=== PATIENT | female | born 1930 | race Native Hawaiian/Other Pacific Islander ===

== ENCOUNTER 2019-02-16 09:37 | Inpatient (IN) | payer MEDICARE ==
[2019-02-16] VITALS (32 sets, daily range): BP systolic 100–169; BP diastolic 44–82
[~2019-02-16] VITALS: Ht 147.3 cm; Wt 43.1 kg
[2019-02-16 09:52] LABS: BASOPHILS % (AUTO) 0.3 % (0.0-5.0); EOSINOPHILS % (AUTO) 0.3 % (0.0-8.0); HEMATOCRIT 36.8 % (36-48); LYMPHOCYTES % (AUTO) 34.5 % (21.0-51.0); MEAN CORPUSCULAR HEMOGLOBIN 30.4 pg (27.0-33.0); MEAN CORPUSCULAR HGB CONC 33.2 g/dL (32.0-36.0); MEAN CORPUSCULAR VOLUME 91.6 fL (79-99); MONOCYTES % (AUTO) 6.5 % (3.0-13.0); NEUTROPHILS % (AUTO) 58.4 % (40.0-77.0); NUCLEATED RED BLOOD CELLS 0.1 % (0.0-0.19); PLATELET COUNT (AUTO) 213 K/uL (130-400); RED BLOOD CELL COUNT(AUTO) 4.02 MIL/uL (4.00-5.50); RED CELL DISTRIBUTION WIDTH 15.3 % (11.0-15.5); WHITE BLOOD COUNT (AUTO) 9.3 K/uL (4.8-10.8)
[2019-02-16 09:57] LABS: POTASSIUM 3.7 mmol/L (3.5-5.1)
[2019-02-16 09:59] LABS: CREATININE 1.3 mg/dL (0.5-1.5)
[2019-02-16 10:00] LABS: APPEARANCE,URINE TURBID (CLEAR); BILIRUBIN,URINE NEGATIVE (NEGATIVE); COLOR,URINE YELLOW (YELLOW); GLUCOSE, URINE (UA) NEGATIVE (NEGATIVE); KETONES,URINE NEGATIVE (NEGATIVE); LEUKOCYTE ESTERASE ,URINE LARGE (NEGATIVE); NITRATE,URINE POSITIVE (NEGATIVE); OCCULT BLOOD,URINE SMALL (NEGATIVE); PH,URINE 8.5 (5.0-8.0); PROTEIN,URINE 100 mg/dL (NEGATIVE); UROBILINOGEN,URINE 0.2 mg/dL (0.2-1.0)
[2019-02-16] MEDS ORDERED: NOREPINEPHRINE BITARTRATE 1 MG/1 ML ML IV ONE (10:02)
[2019-02-16 10:04] LABS: ALBUMIN 2.5 g/dL (3.5-5.0); BILIRUBIN,TOTAL 0.4 mg/dL (0.2-1.0); TOTAL PROTEIN, SERUM 6.3 g/dL (6.0-8.3)
[2019-02-16] MEDS ORDERED: SODIUM CHLORIDE 0.9% 250 ML IV ONE (10:04)
[2019-02-16 10:05] LABS: ABG BASE EXCESS 1.6 mmol/L (-2.0-3.0); ABG HCO3 25.6 mmol/L (21.0-28.0); ABG OXYGEN SATURATION 99.5 % (95.0-99.0); ABG PCO2 38 mmHg (32-45)
[2019-02-16 10:17] LABS: BACTERIA,URINE Many /HPF (None Seen); SQUAMOUS EPITHELIAL CELL,UR Few /HPF (0-2); WBC,URINE TNTC /HPF (0-1)
[2019-02-16 10:27] LABS: B-TYPE NATRIURETIC PEPTIDE 68 pg/mL (0-100)
[2019-02-16] MEDS ORDERED: ZOSYN 3.375GM+NS 50ML 50 ML IV ONE (10:50)
[2019-02-16] MEDS: SODIUM CHLORIDE 0.9% 1000ML 1,000 ML IV SCH ×2 (10:56→17:07)
[2019-02-16] MEDS ORDERED: VANCOMYCIN 1GM+NS 250ML 250 ML IV SCH (11:00)
[2019-02-16] MEDS ORDERED: ONDANSETRON HCL 4 MG/2 ML VIAL IV PRN (11:00)
[2019-02-16] MEDS ORDERED: VANCOMYCIN PROTOCOL PER PHARMACY IV PRN (11:00)
[2019-02-16] MEDS ORDERED: PROPOFOL 1000 MG/100 ML 100 ML IV ONE (11:07)
[2019-02-16] MEDS ORDERED: VANCOMYCIN PROTOCOL PER PHARMACY IV SCH (11:15)
[2019-02-16 11:19] LABS: INR 1.01 (0.85-1.15); PARTIAL THROMBOPLASTIN TIME 26.6 SEC (26.3-35.5); PROTHROMBIN TIME 10.6 SEC (9.6-11.6)
[2019-02-16] MEDS: INSULIN LISPRO 100 UNIT/ML 3ML SQ SCH ×2 (12:00→17:07)
[2019-02-16] MEDS: IPRATROPIUM/ALBUTEROL SULFATE 3 ML SOLUTION IH SCH ×3 (12:30→23:19)
--- NOTE | 2019-02-16 12:32 | NUR ---
pt unable to give history, pt on vent. no family @ this time Addendum: 02/16/19 at 1232 by MEHDI OLSEN RT Amended: Links added.
[2019-02-16] MEDS ORDERED: LACTATED RINGERS 1000ML 1,000 ML IV ONE (12:41)
[2019-02-16] MEDS ORDERED: NOREPINEPHRINE 4MG/NS 250ML 250 ML IV SCH (12:45)
[2019-02-16] MEDS ORDERED: PROPOFOL 1000 MG/100 ML IV PRN (13:00)
[2019-02-16 13:01] LABS: ABG BASE EXCESS 4.9 mmol/L (-2.0-3.0); ABG HCO3 24.2 mmol/L (21.0-28.0); ABG OXYGEN SATURATION 99.8 % (95.0-99.0); ABG PCO2 23 mmHg (32-45)
[2019-02-16] MEDS: LACTATED RINGERS 1000ML 1,000 ML IV SCH (14:42)
[2019-02-16] MEDS: MEROPENEM 500 MG VIAL IV SCH ×2 (14:47→18:41)
[2019-02-16] MEDS ORDERED: COMPOUND IV REFRIGERATED 1 EACH IVSOLN MISC PRN (15:00)
[2019-02-16] MEDS ORDERED: LORAZEPAM 2 MG/ML 1 ML VIAL IVP PRN (15:00)
[2019-02-16 15:17] LABS: ABG BASE EXCESS 4.1 mmol/L (-2.0-3.0); ABG HCO3 25.6 mmol/L (21.0-28.0); ABG OXYGEN SATURATION 99.6 % (95.0-99.0); ABG PCO2 30 mmHg (32-45)
[2019-02-16] MEDS: POTASSIUM CHLORIDE 20MEQ/100ML 100 ML IV PRN ×3 (15:18→23:15)
[2019-02-16] MEDS ORDERED: ACET-3194 PO (15:24)
[2019-02-16] MEDS ORDERED: PRAV10TA39 PO (15:24)
[2019-02-16] MEDS ORDERED: SITA100T12 PO (15:24)
[2019-02-16] MEDS ORDERED: CARV3.12 PO (15:24)
[2019-02-16] MEDS ORDERED: CEFD300C3 PO (15:24)
[2019-02-16] MEDS ORDERED: AMLO5TAB9 PO (15:24)
[2019-02-16] MEDS: VANCOMYCIN 750MG + NS 250 ML IV SCH ×2 (16:25)
[2019-02-16 18:29] LABS: CREATINE KINASE, TOTAL 203 U/L (21-232); MYOGLOBIN 192 ng/mL (10-92); TROPONIN I < 0.04 ng/mL (0.00-0.06)
--- NOTE | 2019-02-16 19:00 | NUR ---
ASSESSMENT ASSUMED CARE. INTUBATED & SEDATED. NON-RESPONSIVE. WEAK COUGH REFLEX. HYPOTHERMIA PROTOCOL IN PROGRESS. CURRENTLY CORE TEMP 32.8 CELSIUS. DAUGHTER AND CAREGIVER AT BEDSIDE. UPDATED REGARDING PATIENT STATUS AND PLAN OF CARE. FULL ASSESSMENT DOCUMENTED.
[2019-02-16] MEDS ORDERED: FAMOTIDINE/PF 20 MG/2 ML VIAL IV SCH (21:00)
[2019-02-16] MEDS: FAMOTIDINE/PF 20 MG/2 ML VIAL IV SCH (21:44)
[2019-02-16 22:39] LABS: CREATINE KINASE, TOTAL 212 U/L (21-232); MYOGLOBIN 134 ng/mL (10-92); POTASSIUM 3.4 mmol/L (3.5-5.1); TROPONIN I < 0.04 ng/mL (0.00-0.06)
[2019-02-17] VITALS (58 sets, daily range): BP systolic 88–162; BP diastolic 35–68
[2019-02-17] MEDS: PROPOFOL 1000 MG/100 ML 100 ML IV PRN ×2 (02:34→13:18)
[2019-02-17] MEDS: LACTATED RINGERS 1000ML 1,000 ML IV SCH ×4 (02:35→19:11)
[2019-02-17] MEDS: INSULIN LISPRO 100 UNIT/ML 3ML SQ SCH ×7 (04:00→23:54)
[2019-02-17] MEDS: POTASSIUM CHLORIDE 20MEQ/100ML 100 ML IV PRN ×2 (04:04→05:32)
[2019-02-17 04:05] LABS: ABG BASE EXCESS 4.1 mmol/L (-2.0-3.0); ABG HCO3 23.7 mmol/L (21.0-28.0); ABG OXYGEN SATURATION 99.6 % (95.0-99.0); ABG PCO2 24 mmHg (32-45)
[2019-02-17] MEDS: MEROPENEM 500 MG VIAL IV SCH ×3 (04:10→18:05)
[2019-02-17] MEDS: IPRATROPIUM/ALBUTEROL SULFATE 3 ML SOLUTION IH SCH ×4 (06:10→23:14)
[2019-02-17] MEDS: ENOXAPARIN SODIUM 40 MG/0.4 ML SYRINGE SQ SCH (09:02)
[2019-02-17] MEDS: FAMOTIDINE/PF 20 MG/2 ML VIAL IV SCH ×2 (09:03→20:50)
[2019-02-17] MEDS: ASPIRIN 325 MG TABLET PO SCH (09:04)
--- NOTE | 2019-02-17 09:50 | NUR ---
REWARMING INITIATED PER PROTOCOL.
--- NOTE | 2019-02-17 11:52 | NUR ---
MARGARET PLAN VISITED WITH PATIENT. PATIENT INTUBATED NO FAMILY AT BEDSIDE S/P CARDIAC ARREST. BLAS WILL CONTINUE TO FOLLOW. Addendum: 02/17/19 at 1153 by JADEN MARTINES RN CM Amended: Links added.
--- NOTE | 2019-02-17 11:53 | NUR ---
DR. PURCELL IN TO SEE PT. PLAN OF CARE DISCUSSED. FAMILY AT BEDSIDE. QUESTIONS ANSWERED. NEW ORDERS RECEIVED AND NOTED.
[2019-02-17] MEDS: NOREPINEPHRINE 4MG/NS 250ML 250 ML IV SCH (13:25)
[2019-02-18] VITALS (21 sets, daily range): BP systolic 72–150; BP diastolic 34–54
[2019-02-18] MEDS ORDERED: SODIUM BICARB 50MEQ 50ML VIAL ONE (00:24)
[2019-02-18] MEDS: LACTATED RINGERS 1000ML 1,000 ML IV SCH ×3 (02:03→20:56)
[2019-02-18] MEDS: MEROPENEM 500 MG VIAL IV SCH ×3 (02:47→18:21)
[2019-02-18] MEDS: PROPOFOL 1000 MG/100 ML 100 ML IV PRN ×2 (02:48→13:01)
[2019-02-18] MEDS: INSULIN LISPRO 100 UNIT/ML 3ML SQ SCH ×5 (04:00→20:00)
[2019-02-18 04:39] LABS: ABG HCO3 22.2 mmol/L (21.0-28.0); ABG OXYGEN SATURATION 98.6 % (95.0-99.0); ABG PCO2 30 mmHg (32-45)
[2019-02-18 04:40] LABS: HEMATOCRIT 34.3 % (36-48); MEAN CORPUSCULAR HEMOGLOBIN 30.2 pg (27.0-33.0); MEAN CORPUSCULAR HGB CONC 33.1 g/dL (32.0-36.0); MEAN CORPUSCULAR VOLUME 91.3 fL (79-99); PLATELET COUNT (AUTO) 161 K/uL (130-400); RED BLOOD CELL COUNT(AUTO) 3.76 MIL/uL (4.00-5.50); RED CELL DISTRIBUTION WIDTH 15.9 % (11.0-15.5); WHITE BLOOD COUNT (AUTO) 14.2 K/uL (4.8-10.8)
[2019-02-18 04:57] LABS: CREATININE 0.7 mg/dL (0.5-1.5); MAGNESIUM 1.5 mg/dL (1.80-2.40); PHOSPHORUS 3.8 mg/dL (2.5-4.9); POTASSIUM 4.1 mmol/L (3.5-5.1)
[2019-02-18] MEDS: IPRATROPIUM/ALBUTEROL SULFATE 3 ML SOLUTION IH SCH ×4 (07:13→23:22)
[2019-02-18] MEDS: FAMOTIDINE/PF 20 MG/2 ML VIAL IV SCH ×2 (09:31→20:56)
[2019-02-18] MEDS: ASPIRIN 325 MG TABLET PO SCH (09:31)
[2019-02-18] MEDS: ENOXAPARIN SODIUM 40 MG/0.4 ML SYRINGE SQ SCH (09:32)
--- NOTE | 2019-02-18 09:55 | NUR ---
CHART CHECK COMPLETED. Pt IS AN 88 YEAR OLD FEMALE ADMITTED SECONDARY TO AN OUT OF HOSPITAL CARDIAC ARREST, SEPTIC SHOCK, INTUBATED ON VENT AT THIS TIME. Pt HAS A PAST MEDICAL HISTORY SIGNIFICANT FOR DMII,HYPERTENSION, DEMENTIA, HYPERLIPIDEMIA. SKILLED SPEECH AND SWALLOW EVALUATION IS RECOMMENDED 24 HOURS POST EXTUBATION. STRIPPER SHOVEL OPERATOR WILL FOLLOW Pt. Addendum: 02/18/19 at 1001 by HORTENSIA PAREKH, [facility] Amended: Links added.
[2019-02-18] MEDS ORDERED: SODIUM CHLORIDE 0.9% IJ SCH (10:00)
[2019-02-18] MEDS ORDERED: FOSPHENYTOIN SODIUM IJ SCH (10:00)
[2019-02-18] MEDS: LEVETIRACETAM 1,000 MG in SODIUM CHLORIDE 0.9% 100 ML IV SCH ×2 (10:09→17:35)
[2019-02-18] MEDS ORDERED: COMPOUND IV MISC 1 EACH IVSOLN MISC PRN (12:00)
[2019-02-18] MEDS ORDERED: MAGNESIUM 4GM PREMIX 100ML 100 ML IV PRN (12:15)
[2019-02-18] MEDS: VANCOMYCIN 750MG + NS 250 ML IV SCH ×2 (14:57)
--- NOTE | 2019-02-18 15:14 | NUR ---
RD NOTIFICATION DX: CARDIAC ARREST, SEPTIC SHOCK. HX: DM, HTN, DEMENTIA, UTI. DIET: NO ORDER AT THIS TIME. NG TUBE IN PLACE. LBM: 02/18. PT CURRENTLY INTUBATED, SEDATED, ON MECHANICAL VENTILATION. RD CONSULT DUE TO TUBE FEEDING RECOMMENDATIONS. PT CURRENTLY ON 7.2 MLS/HR PROPOFOL. RD RECOMMENDS START GLUCERNA 1.5 AT 15MLS/HR VIA NG TUBE, INCREASE RATE BY 5MLS EVERY 5 HOURS IF TOLERATED WELL. GOAL RATE IS 30MLS/HR. FORMULA PROVIDES 1081KCAL/D, 59 GM PROTEIN/D, 546MLS/D. FLUSH WITH 120MLS Q6. TOTAL WATER EQUALS 1226MLS/D. RN NOTIFIED. RECS LEFT IN PT CHART. RD WILL CONTINUE TO MONITOR AND FOLLOW UP. PLEASE NOTIFY RD IF ANY CONCERNS ARISE. THANK YOU. Addendum: 02/18/19 at [address] Amended: Links added.
[2019-02-18] MEDS ORDERED: MAGNESIUM 2GM PREMIX 50ML 50 ML IV PRN (15:15)
[2019-02-18] MEDS: FOSPHENYTOIN SODIUM 100 MG in SODIUM CHLORIDE 0.9% 50 ML IV SCH (17:34)
[2019-02-19] VITALS (34 sets, daily range): BP systolic 77–145; BP diastolic 30–69
[2019-02-19] MEDS: LEVETIRACETAM 1,000 MG in SODIUM CHLORIDE 0.9% 100 ML IV SCH ×3 (02:03→19:28)
[2019-02-19] MEDS: FOSPHENYTOIN SODIUM 100 MG in SODIUM CHLORIDE 0.9% 50 ML IV SCH ×3 (02:04→19:28)
[2019-02-19] MEDS: MEROPENEM 500 MG VIAL IV SCH ×2 (02:24→10:54)
[2019-02-19 03:59] LABS: HEMATOCRIT 30.9 % (36-48); MEAN CORPUSCULAR HGB CONC 34.7 g/dL (32.0-36.0); MEAN CORPUSCULAR VOLUME 89.4 fL (79-99); NUCLEATED RED BLOOD CELLS 0.1 % (0.0-0.19); PLATELET COUNT (AUTO) 154 K/uL (130-400); RED BLOOD CELL COUNT(AUTO) 3.46 MIL/uL (4.00-5.50); RED CELL DISTRIBUTION WIDTH 15.6 % (11.0-15.5); WHITE BLOOD COUNT (AUTO) 10.5 K/uL (4.8-10.8)
[2019-02-19] MEDS: PROPOFOL 1000 MG/100 ML 100 ML IV PRN (04:01)
[2019-02-19] MEDS: NOREPINEPHRINE 4MG/NS 250ML 250 ML IV SCH (04:03)
[2019-02-19 04:15] LABS: CREATININE 0.6 mg/dL (0.5-1.5); MAGNESIUM 2.3 mg/dL (1.80-2.40)
[2019-02-19 04:25] LABS: POTASSIUM 2.9 mmol/L (3.5-5.1)
[2019-02-19] MEDS: POTASSIUM CHLORIDE 20MEQ/100ML 100 ML IV PRN ×2 (04:40→09:51)
[2019-02-19] MEDS: LIDOCAINE HCL-MPF 1% 2ML VIAL IV PRN (04:40)
[2019-02-19] MEDS: INSULIN LISPRO 100 UNIT/ML 3ML SQ SCH ×6 (05:00→20:00)
[2019-02-19] MEDS: IPRATROPIUM/ALBUTEROL SULFATE 3 ML SOLUTION IH SCH ×4 (06:08→23:33)
[2019-02-19] MEDS ORDERED: SODIUM CHLORIDE 0.9% 250 ML IV ONE (06:31)
[2019-02-19] MEDS: ASPIRIN 325 MG TABLET PO SCH (09:27)
[2019-02-19] MEDS: ENOXAPARIN SODIUM 40 MG/0.4 ML SYRINGE SQ SCH (09:27)
[2019-02-19] MEDS: FAMOTIDINE/PF 20 MG/2 ML VIAL IV SCH ×2 (09:27→20:30)
[2019-02-19] MEDS: LACTATED RINGERS 1000ML 1,000 ML IV SCH ×3 (09:36→19:27)
--- NOTE | 2019-02-19 09:50 | NUR ---
ROUNDS DR. SINGER IN TO SEE PATIENT. SPOKE WITH DAUGHTERS AT BEDSIDE. NEW ORDERS RECEIVED TO BE CARRIED OUT.
--- NOTE | 2019-02-19 10:00 | NUR ---
PROPOFOL TURNED OFF AT THIS TIME TO ASSESS NEURO STATUS.
[2019-02-19] MEDS ORDERED: PHARMACY COMMUNICATION MISC SCH ×2 (10:30)
--- NOTE | 2019-02-19 12:30 | NUR ---
MD ROUNDS DR. PURCELL IN TO SEE PATIENT. UPDATED ON NEW ORDERS FROM DR. SINGER.
[2019-02-19] MEDS: VALPROIC ACID (AS SODIUM SALT) 500 MG in SODIUM CHLORIDE 0.9% 50 ML IV SCH ×2 (13:08→23:23)
--- NOTE | 2019-02-19 15:30 | NUR ---
TAKEN TO CT FOR CT HEAD/BRAIN
--- NOTE | 2019-02-19 15:33 | NUR ---
RD NOTIFICATION/ FOLLOW UP DIET: GLUCERNA 1.5 VIA NG TUBE. GOAL RATE IS 30MLS/HR. PT TOLERATING TF WELL. RESIDUALS ARE NOT SIGNIFICANT PER NURSE. LBM: 02/18. SKIN INTACT, NO EDEMA NOTED. PROPOFOL ON STANDBY PER NURSE. RN NOTIFIED TO PUT IN NEW ORDER IF ANY CHANGES OCCUR. RD RECOMMENDS CONTINUE TF RECOMMENDATIONS. RD WILL CONTINUE TO MONITOR AND FOLLOW UP NEEDED. Addendum: 02/19/19 at [address] Amended: Links added.
--- NOTE | 2019-02-19 16:00 | NUR ---
BACK FROM CT SCAN HEAD/BRAIN.
[2019-02-19] MEDS: ZOSYN 3.375GM+NS 50ML 50 ML IV SCH ×2 (16:52→23:11)
--- NOTE | 2019-02-19 18:45 | NUR ---
CT SCAN HEAD/BRAIN RESULTS SENT TO DR. SINGER. NO NEW ORDERS AT THIS TIME.
[2019-02-20] VITALS (48 sets, daily range): BP systolic 106–157; BP diastolic 44–70
[2019-02-20] MEDS: LEVETIRACETAM 1,000 MG in SODIUM CHLORIDE 0.9% 100 ML IV SCH ×3 (01:32→18:13)
[2019-02-20] MEDS: PROPOFOL 1000 MG/100 ML 100 ML IV PRN (01:32)
[2019-02-20] MEDS: FOSPHENYTOIN SODIUM 100 MG in SODIUM CHLORIDE 0.9% 50 ML IV SCH ×3 (01:32→18:14)
[2019-02-20] MEDS: LACTATED RINGERS 1000ML 1,000 ML IV SCH ×3 (03:47→20:45)
[2019-02-20] MEDS: INSULIN LISPRO 100 UNIT/ML 3ML SQ SCH ×6 (04:00→20:00)
[2019-02-20 04:10] LABS: MAGNESIUM 2.1 mg/dL (1.80-2.40); POTASSIUM 3.5 mmol/L (3.5-5.1)
--- NOTE | 2019-02-20 05:25 | NUR ---
REPORT GIVEN TO HARMEET HOLMAN
[2019-02-20] MEDS: NOREPINEPHRINE 4MG/NS 250ML 250 ML IV SCH (05:32)
[2019-02-20] MEDS: ZOSYN 3.375GM+NS 50ML 50 ML IV SCH (05:46)
[2019-02-20] MEDS: IPRATROPIUM/ALBUTEROL SULFATE 3 ML SOLUTION IH SCH ×4 (06:40→23:27)
--- NOTE | 2019-02-20 07:45 | NUR ---
PT IS HAVING EEG AT PRESENT AND PT HAS BEEN ASSESSED AND REMAINS ON VENTILATOR PRESCRIBED.
[2019-02-20 11:36] LABS: PHENYTOIN (DILANTIN) 13.7 mcg/mL (10.0-20.0)
[2019-02-20] MEDS: FAMOTIDINE/PF 20 MG/2 ML VIAL IV SCH ×2 (11:38→21:08)
[2019-02-20] MEDS: ENOXAPARIN SODIUM 40 MG/0.4 ML SYRINGE SQ SCH (11:39)
[2019-02-20] MEDS: VALPROIC ACID (AS SODIUM SALT) 500 MG in SODIUM CHLORIDE 0.9% 50 ML IV SCH ×2 (11:41→23:17)
[2019-02-20] MEDS: ASPIRIN 325 MG TABLET PO SCH (11:41)
[2019-02-20] MEDS ORDERED: LACTATED RINGERS 1000ML IV SCH (12:45)
[2019-02-20] MEDS ORDERED: PHARMACY COMMUNICATION MISC SCH (14:15)
--- NOTE | 2019-02-20 14:51 | NUR ---
RD NOTIFICATION/ FOLLOW UP RD CONSULT DUE TO PT HAVING LOOSE STOOLS. PT PREVIOUSLY ON GLUCERNA 1.5 AND REACHED RATE OF 20MLS/HR. RD RECOMMEND D/C GLUCERNA 1.5. CHANGE TF FORMULA TO VITAL AF 1.2 VIA NG TUBE. START RATE AT 15MLS FOR FIRST 5 HOURS, INCREASE BY 5MLS EVER 5 HOURS UNTIL GOAL RATE ACHIEVED. GOAL RATE IS 35MLS HR. FORMULA PROVIDES 1008KCALS + PROPOFOL= 1198KCAL/D, 63GM PROTEIN/D, 681MLS/D. FLUSH WITH 85MLS Q6. TOTAL WATER IS 1221MLS/D. RN NOTIFIED. RD WILL CONTINUE TO MONITOR AND FOLLOW UP NEEDED. Addendum: 02/20/19 at [address] Amended: Links added.
[2019-02-20] MEDS ORDERED: VALPROIC ACID (AS SODIUM SALT) 500 MG in SODIUM CHLORIDE 0.9% 50 ML IV SCH (15:15)
--- NOTE | 2019-02-20 20:00 | NUR ---
ASSESSMENT REMAINS ON VENT WITH SEDATION. LEVOPHED DRIP FOR BP SUPPORT. ASSESSMENT COMPLETED SEE FLOW SHEET. ENCOURAGED TO CALL FOR WANTS OR NEEDS. Addendum: 02/20/19 at 2031 by TORY CONRAD RN RN Amended: Links added.
[2019-02-20] MEDS: CEFTRIAXONE SODIUM 1 GM IVP SCH (21:09)
[2019-02-21] VITALS (27 sets, daily range): BP systolic 89–193; BP diastolic 41–103
[2019-02-21] MEDS: INSULIN LISPRO 100 UNIT/ML 3ML SQ SCH ×7 (00:18→23:53)
[2019-02-21] MEDS: FOSPHENYTOIN SODIUM 100 MG in SODIUM CHLORIDE 0.9% 50 ML IV SCH ×2 (02:03→10:34)
[2019-02-21] MEDS: LEVETIRACETAM 1,000 MG in SODIUM CHLORIDE 0.9% 100 ML IV SCH ×3 (02:03→18:54)
[2019-02-21] MEDS: LACTATED RINGERS 1000ML 1,000 ML IV SCH ×3 (03:15→20:16)
[2019-02-21 03:53] LABS: HEMATOCRIT 31.3 % (36-48); MEAN CORPUSCULAR HEMOGLOBIN 30.3 pg (27.0-33.0); MEAN CORPUSCULAR HGB CONC 33.8 g/dL (32.0-36.0); MEAN CORPUSCULAR VOLUME 89.7 fL (79-99); PLATELET COUNT (AUTO) 155 K/uL (130-400); RED BLOOD CELL COUNT(AUTO) 3.49 MIL/uL (4.00-5.50); RED CELL DISTRIBUTION WIDTH 15.7 % (11.0-15.5); WHITE BLOOD COUNT (AUTO) 7.1 K/uL (4.8-10.8)
[2019-02-21 03:56] LABS: CREATININE 0.6 mg/dL (0.5-1.5)
[2019-02-21 04:07] LABS: BAND NEUTROPHILS % (MANUAL) 2 % (0-2); LYMPHOCYTES % (MANUAL) 11 % (22-44); MAN.DIFF COMMENT-IMPRESSION MANUAL DIFFERENTIAL; MONOCYTES % (MANUAL) 2 % (2-9); PLATELET MORPHOLOGY COMMENT ADEQUATE; SEGMENTED NEUTROPHILS % 85 % (40-70)
[2019-02-21 04:33] LABS: POTASSIUM 2.5 mmol/L (3.5-5.1)
[2019-02-21] MEDS: LIDOCAINE HCL-MPF 1% 2ML VIAL IV PRN (05:05)
[2019-02-21] MEDS: POTASSIUM CHLORIDE 20MEQ/100ML 100 ML IV PRN ×2 (05:05→18:54)
[2019-02-21] MEDS: IPRATROPIUM/ALBUTEROL SULFATE 3 ML SOLUTION IH SCH ×4 (05:22→23:36)
[2019-02-21] MEDS: ASPIRIN 325 MG TABLET PO SCH (09:15)
[2019-02-21] MEDS: ENOXAPARIN SODIUM 40 MG/0.4 ML SYRINGE SQ SCH (09:17)
[2019-02-21] MEDS: FAMOTIDINE/PF 20 MG/2 ML VIAL IV SCH (10:07)
[2019-02-21] MEDS: VALPROIC ACID (AS SODIUM SALT) 500 MG in SODIUM CHLORIDE 0.9% 50 ML IV SCH ×2 (10:35→23:02)
--- NOTE | 2019-02-21 15:38 | NUR ---
RD NOTIFICATION/ FOLLOW UP PT REMAINS INTUBATED AND ON MECHANICAL VENTILATION, NOTED. NG TUBE IN PLACE. DIET: TF: VITAL AF 1.2 NOW AT 25MLS/HR. PT TOLERATING TF WELL AND LOOSE STOOLS RESOLVED PER NURSE. LBM: 02/21. PT HAVING NO RESIDUALS AT THIS TIME. PROPOFOL NOW RUNNING AT 2.4MLS/HR INSTEAD OF 7.2MLS/HR. RD RECOMMENDS OKAY TO CONTINUE WITH VITAL AF 1.2; GOAL RATE AT 35MLS/ HR. FORMULA NOW PROVIDES 1071KCALS/D; STILL MEETING PT NEEDS. RD WILL CONTINUE TO MONITOR AND FOLLOW UP NEEDED. PLEASE NOTIFY RD IF ANY CHANGES OCCUR TO REASSESS PT KCAL NEEDS. THANK YOU. GARLAND SAMPSON MS, RDN Addendum: 02/21/19 at [address] Amended: Links added.
--- NOTE | 2019-02-21 20:00 | NUR ---
ASSESSMENT REMAINS ON VENT WITH ORDERED SETTINGS AND SEDATION. DAUGHTER AT BEDSIDE AND QUESTIONS ANSWERED. ASSESSMENT COMPLETED SEE FLOW SHEET. Addendum: 02/21/19 at 2108 by TORY CONRAD RN RN Amended: Links added.
[2019-02-21] MEDS: CEFTRIAXONE SODIUM 1 GM IVP SCH (21:37)
[2019-02-21] MEDS: PHENYTOIN 100 MG/4 ML UDCUP PO SCH (21:38)
[2019-02-21] MEDS: PROPOFOL 1000 MG/100 ML 100 ML IV PRN (23:03)
[2019-02-22] VITALS (24 sets, daily range): BP systolic 94–153; BP diastolic 40–75
[2019-02-22] MEDS: INSULIN LISPRO 100 UNIT/ML 3ML SQ SCH ×3 (00:28→18:36)
[2019-02-22] MEDS: LEVETIRACETAM 1,000 MG in SODIUM CHLORIDE 0.9% 100 ML IV SCH ×3 (03:12→17:47)
[2019-02-22 03:35] LABS: MEAN CORPUSCULAR HEMOGLOBIN 30.1 pg (27.0-33.0); MEAN CORPUSCULAR VOLUME 88.6 fL (79-99); PLATELET COUNT (AUTO) 137 K/uL (130-400); RED BLOOD CELL COUNT(AUTO) 3.16 MIL/uL (4.00-5.50); RED CELL DISTRIBUTION WIDTH 15.6 % (11.0-15.5); WHITE BLOOD COUNT (AUTO) 5.9 K/uL (4.8-10.8)
[2019-02-22 03:51] LABS: ALBUMIN 1.5 g/dL (3.5-5.0); BILIRUBIN,TOTAL 0.1 mg/dL (0.2-1.0); CREATININE 0.4 mg/dL (0.5-1.5); MAGNESIUM 1.6 mg/dL (1.80-2.40); TOTAL PROTEIN, SERUM 4.7 g/dL (6.0-8.3)
[2019-02-22 04:12] LABS: POTASSIUM 2.9 mmol/L (3.5-5.1)
[2019-02-22] MEDS: POTASSIUM CHLORIDE 20MEQ/100ML 100 ML IV PRN ×2 (04:16→06:23)
[2019-02-22] MEDS: LIDOCAINE HCL-MPF 1% 2ML VIAL IV PRN ×2 (04:17→06:23)
[2019-02-22] MEDS: LACTATED RINGERS 1000ML 1,000 ML IV SCH ×3 (04:45→17:15)
[2019-02-22 05:05] LABS: BAND NEUTROPHILS % (MANUAL) 3 % (0-2); EOSINOPHILS % (MANUAL) 2 % (1-6); LYMPHOCYTES % (MANUAL) 16 % (22-44); MAN.DIFF COMMENT-IMPRESSION MANUAL DIFFERENTIAL; MONOCYTES % (MANUAL) 5 % (2-9); PLATELET MORPHOLOGY COMMENT ADEQUATE; REACTIVE LYMPHOCYTES 1 % (0-0); SEGMENTED NEUTROPHILS % 73 % (40-70)
[2019-02-22] MEDS: IPRATROPIUM/ALBUTEROL SULFATE 3 ML SOLUTION IH SCH ×4 (06:11→23:03)
--- NOTE | 2019-02-22 07:30 | NUR ---
RECEIVED PATIENT IN BED, FAMILY AT BEDSIDE. PATIENT CONTINUES ON VENTILATOR WITH THE FOLLOWING SETTINGS: AC/10/450/5/35% WITH SATURATIONS AT 100%. PER REPORT, PATIENT HAS BEEN OFF LEVOPHED SINCE LAST NIGHT. PLAN FOR PICC LINE IF PATIENT WERE TO CONTINUE WITH LEVOPHED. F/C NOTED, DRAINING TO GRAVITY, WITH YELLOW URINE. RECTAL TUBE NOTED. LEFT NARE NGT TUBE, SECURED, PLACEMENT VERIFIED. VITAL AF 1.2 CONTINUOUS @ 30ML/HR WITH GOAL OF 35 ML/HR. TOLERATING FEEDING WELL. NEURO STATUS, PATIENT ON PROPOFOL 10MCG/HR (2.4 ML). + GAG NOTED AND + PAINFUL STIMULI NOTED. ETT 7.0, 23 LIP. PATIENT IS DNR STATUS. TELE SR 61. WILL CONT TO MONITOR.
--- NOTE | 2019-02-22 08:24 | NUR ---
MD ROUNDS DR. RUDD IN TO SEE PATIENT. MD UPDATED ON STATUS. NEW ORDERS RECEIVED TO BE CARRIED OUT. INSTRUCTED TO LEAVE PATIENT OFF SEDATION.
[2019-02-22] MEDS: FAMOTIDINE 20MG TAB 20 MG TAB PO SCH (09:30)
[2019-02-22] MEDS: ASPIRIN 325 MG TABLET PO SCH (09:30)
[2019-02-22] MEDS: PHENYTOIN 100 MG/4 ML UDCUP PO SCH ×3 (09:30→21:09)
[2019-02-22] MEDS: ENOXAPARIN SODIUM 40 MG/0.4 ML SYRINGE SQ SCH (09:31)
[2019-02-22] MEDS ORDERED: MAGNESIUM 2GM PREMIX 50ML 50 ML IV PRN (10:15)
[2019-02-22] MEDS ORDERED: POTASSIUM CHLORIDE 20MEQ/100ML 100 ML IV PRN (10:15)
[2019-02-22 10:30] LABS: MAGNESIUM 2.1 mg/dL (1.80-2.40); POTASSIUM 3.9 mmol/L (3.5-5.1)
[2019-02-22] MEDS: VALPROIC ACID (AS SODIUM SALT) 500 MG in SODIUM CHLORIDE 0.9% 50 ML IV SCH ×2 (10:47→23:24)
--- NOTE | 2019-02-22 11:32 | NUR ---
RECEIVED PHONE CALL FROM DR. LUCRECIA MD REQUESTED UPDATE ON PATIENT STATUS. INFORMED ME HE SPOKE WITH PT'S DAUGHTER, WHOM IS A NURSE, REGARDING TRACH AND PEG AFTER ALLOTTED TIME AFTER CARDIAC ARREST. I SPOKE WITH DAUGHTER WHO IS PRESENT AT BEDSIDE TODAY. SHE CONFIRMS THAT SHE DID SPEAK WITH DR. SINGER AND THAT FAMILY HAS DECIDED IF BY THE 7TH DAY THERE IS NO CHANGE, THEY WILL WANT COMFORT MEASURES FOR THEIR MOTHER. SAVITA COLLINS WITH DR. RUDD, IN TO SEE PATIENT. I UPDATED HER ON PATIENT STATUS AND CONVERSATION WITH DR. SINGER. I INFORMED HER THAT WHEN DR. RUDD ROUNDED, I DID NOT HAVE CURRENT INFORMATION REGARDING TRACH/PEG VS COMFORT MEASURES. SAVITA Nails, STATES SHE WILL UPDATED DR. RUDD. WILL CONT TO MONITOR CLOSELY.
--- NOTE | 2019-02-22 17:05 | NUR ---
UNABLE TO OBTAIN AXILLARY TEMPERATURE. BEAR HUGGER PLACED ON PATIENT. WILL CONT TO MONITOR TEMP.
--- NOTE | 2019-02-22 19:30 | NUR ---
ASSESSMENT PT RESTING QUIETLY AND CALMING IN BED. PT REMAINS INTUBATED WITH SETTINGS: AC-10-35%-450 WITH PEEP 5. F/C 16 FR TO BSD. ASSESSMENT COMPLETED, SEE FLOW SHEET. VENT ASSESSMENT. WHITE BOARD UP-DATED. MONITOR SETTINGS REVIEWED AND ADJUSTED ACCORDINGLY.
[2019-02-22] MEDS: CEFTRIAXONE SODIUM 1 GM IVP SCH (21:09)
[2019-02-23] VITALS (24 sets, daily range): BP systolic 90–136; BP diastolic 35–69
[2019-02-23] MEDS: INSULIN LISPRO 100 UNIT/ML 3ML SQ SCH ×4 (00:28→18:32)
[2019-02-23] MEDS: LEVETIRACETAM 1,000 MG in SODIUM CHLORIDE 0.9% 100 ML IV SCH ×3 (01:50→17:00)
[2019-02-23] MEDS: LACTATED RINGERS 1000ML 1,000 ML IV SCH ×2 (01:50→21:28)
--- NOTE | 2019-02-23 03:00 | NUR ---
ASSESSMENT PT RESTING QUIETLY AND CALMLY IN BED. PT REMAINS INTUBATED WITH SETTINGS: AC-10-35%-450 WITH PEEP 5. F/C 16 FR TO BSD DRAINAGE. ASSESSMENT COMPLETED, SEE FLOW SHEET. VENT ASSESSMENT. WHITE BOARD UP-DATED. MONITOR SETTINGS REVIEWED AND ADJUSTED ACCORDINGLY. CALLBELL WITH IN REACH. FAMILY AT BEDSIDE.
[2019-02-23 04:04] LABS: ABG BASE EXCESS 4.1 mmol/L (-2.0-3.0); ABG HCO3 22.7 mmol/L (21.0-28.0); ABG OXYGEN SATURATION 99.6 % (95.0-99.0); ABG PCO2 21 mmHg (32-45)
[2019-02-23 04:35] LABS: HEMATOCRIT 26.8 % (36-48); MEAN CORPUSCULAR HEMOGLOBIN 30.9 pg (27.0-33.0); MEAN CORPUSCULAR HGB CONC 34.7 g/dL (32.0-36.0); PLATELET COUNT (AUTO) 138 K/uL (130-400); RED BLOOD CELL COUNT(AUTO) 3.01 MIL/uL (4.00-5.50); RED CELL DISTRIBUTION WIDTH 15.1 % (11.0-15.5); WHITE BLOOD COUNT (AUTO) 6.9 K/uL (4.8-10.8)
[2019-02-23 04:51] LABS: CREATININE 0.5 mg/dL (0.5-1.5); PHENYTOIN (DILANTIN) 18.9 mcg/mL (10.0-20.0); POTASSIUM 3.2 mmol/L (3.5-5.1)
[2019-02-23] MEDS: POTASSIUM CHLORIDE 20MEQ/100ML 100 ML IV PRN ×2 (06:14→07:48)
[2019-02-23] MEDS: IPRATROPIUM/ALBUTEROL SULFATE 3 ML SOLUTION IH SCH ×4 (06:25→23:19)
[2019-02-23] MEDS: PHENYTOIN 100 MG/4 ML UDCUP PO SCH ×3 (08:12→21:30)
[2019-02-23] MEDS: ASPIRIN 325 MG TABLET PO SCH (10:02)
[2019-02-23] MEDS: FAMOTIDINE 20MG TAB 20 MG TAB PO SCH (10:02)
[2019-02-23] MEDS: VALPROIC ACID (AS SODIUM SALT) 500 MG in SODIUM CHLORIDE 0.9% 50 ML IV SCH ×2 (10:02→22:42)
[2019-02-23] MEDS: ENOXAPARIN SODIUM 40 MG/0.4 ML SYRINGE SQ SCH (10:03)
[2019-02-23 13:24] LABS: ABG BASE EXCESS -1.9 mmol/L (-2.0-3.0); ABG HCO3 21.7 mmol/L (21.0-28.0); ABG OXYGEN SATURATION 98.9 % (95.0-99.0); ABG PCO2 34 mmHg (32-45)
--- NOTE | 2019-02-23 17:10 | NUR ---
DR ALAS AT BEDSIDE TO DISCUSS PROGNOSIS WITH PATIENTS DAUGHTERS X4, FAMILY TO MAKE A DECISION REGARDING POSSIBLE PALLIATIVE CARE MEASURES UNTIL TOMORROW MORNING.
--- NOTE | 2019-02-23 19:15 | NUR ---
ASSESSMENT PT RESTING QUIETLY AND CALMING IN BED. PT REMAINS INTUBATED WITH SETTINGS: AC-10-35%-350 WITH PEEP 5. F/C 16 FR TO BSD. ASSESSMENT COMPLETED, SEE FLOW SHEET. VENT ASSESSMENT. WHITE BOARD UP-DATED. MONITOR SETTINGS REVIEWED AND ADJUSTED ACCORDINGLY. CALLBELL WITHIN REACH.
[2019-02-23] MEDS: CEFTRIAXONE SODIUM 1 GM IVP SCH (21:29)
[2019-02-24] VITALS (23 sets, daily range): BP systolic 86–149; BP diastolic 38–71
[2019-02-24] MEDS: INSULIN LISPRO 100 UNIT/ML 3ML SQ SCH ×2 (00:34→06:52)
[2019-02-24] MEDS: LEVETIRACETAM 1,000 MG in SODIUM CHLORIDE 0.9% 100 ML IV SCH ×3 (01:13→17:58)
--- NOTE | 2019-02-24 03:00 | NUR ---
ASSESSMENT PT RESTING QUIETLY AND CALMING IN BED. PT REMAINS INTUBATED WITH SETTINGS: AC-10-35%-350 WITH PEEP 5. F/C 16 FR TO BSD. RECTAL TUBE INTACT. ASSESSMENT COMPLETED, SEE FLOW SHEET. VENT ASSESSMENT. WHITE BOARD UP-DATED. CALLBELL WITHIN REACH.
[2019-02-24 03:59] LABS: HEMATOCRIT 27.7 % (36-48); MEAN CORPUSCULAR HEMOGLOBIN 30.3 pg (27.0-33.0); MEAN CORPUSCULAR HGB CONC 33.9 g/dL (32.0-36.0); MEAN CORPUSCULAR VOLUME 89.1 fL (79-99); PLATELET COUNT (AUTO) 164 K/uL (130-400); RED BLOOD CELL COUNT(AUTO) 3.11 MIL/uL (4.00-5.50); RED CELL DISTRIBUTION WIDTH 15.5 % (11.0-15.5); WHITE BLOOD COUNT (AUTO) 6.9 K/uL (4.8-10.8)
[2019-02-24 04:12] LABS: EOSINOPHILS % (MANUAL) 4 % (1-6); LYMPHOCYTES % (MANUAL) 14 % (22-44); MONOCYTES % (MANUAL) 8 % (2-9); SEGMENTED NEUTROPHILS % 74 % (40-70)
[2019-02-24 04:13] LABS: MAN.DIFF COMMENT-IMPRESSION MANUAL DIFFERENTIAL; PLATELET MORPHOLOGY COMMENT ADEQUATE
[2019-02-24 04:15] LABS: CREATININE 0.5 mg/dL (0.5-1.5); POTASSIUM 3.8 mmol/L (3.5-5.1)
[2019-02-24] MEDS: IPRATROPIUM/ALBUTEROL SULFATE 3 ML SOLUTION IH SCH ×4 (06:25→23:39)
--- NOTE | 2019-02-24 08:00 | NUR ---
ASSESSMENT Orally intubated - settings as recorded separately. No sedation. Pt with facial grimacing in response to noxious stimulation - brief eye opening observed when oral care rendered. No focus - no acknowledgement of understanding of verbal cues from this RN. VS as recorded. SR on tele. Abd soft with hypoactive bowel sounds. NGT in place - placement verified. TF on hold secondary to upcoming med administration. 0ml residual. F/C patent - yellow urine. Rectal tube with minimal output. Generalized pitting edema. No evidence of skin breakdown. Poor skin turgor throughout. PIV's x3 in place - neither AC site indicate insertion date on drsg. SL to left forearm with date 02/23/19 - indicates site care had been rendered on that date. Brisk blood return obtained from both antecubital sites. Left forearm SL without blood return - not able to flush. Assessment completed/recorded. Repositioned for comfort. HOB @30-degrees. Family member at bedside.
[2019-02-24] MEDS: PHENYTOIN 100 MG/4 ML UDCUP PO SCH ×3 (10:08→21:24)
[2019-02-24] MEDS: ASPIRIN 325 MG TABLET PO SCH (10:08)
[2019-02-24] MEDS: FAMOTIDINE 20MG TAB 20 MG TAB PO SCH (10:20)
[2019-02-24] MEDS: ENOXAPARIN SODIUM 40 MG/0.4 ML SYRINGE SQ SCH (10:21)
[2019-02-24] MEDS: LACTATED RINGERS 1000ML 1,000 ML IV SCH ×2 (10:48→23:21)
[2019-02-24] MEDS: VALPROIC ACID (AS SODIUM SALT) 500 MG in SODIUM CHLORIDE 0.9% 50 ML IV SCH ×2 (10:49→23:22)
--- NOTE | 2019-02-24 12:30 | NUR ---
STATUS No acute changes in overall assessment. Repositioned for comfort and oral care rendered. Suctioned small amount of thick saliva orally. TF resumed at 35ml/hr. Pt is in no apparent distress. No visible changes in neuro status.
--- NOTE | 2019-02-24 13:15 | NUR ---
MD ROUNDS in to see pt - updated. Family members not at bedside at time of MD rounds. Plan of care discussed. No new orders received.
--- NOTE | 2019-02-24 16:00 | NUR ---
STATUS No acute changes in overall assessment. Pt is in no apparent distress. Facial grimacing with noxious stimulation.
--- NOTE | 2019-02-24 16:15 | NUR ---
WITHDRAWAL OF CARE Spoke to pt's family at length regarding their desire to withdraw care. State that they wish to proceed tomorrow, 02/25/19. Questions addressed regarding the necessary documentation as well as the process thereafter. State that it is their desire to no longer have venipunctures or fingersticks performed. Will inform of discussion with family.
[2019-02-24] MEDS: CEFTRIAXONE SODIUM 1 GM IVP SCH (21:24)
[2019-02-25] VITALS (24 sets, daily range): BP systolic 87–146; BP diastolic 43–74
[2019-02-25] MEDS: LEVETIRACETAM 1,000 MG in SODIUM CHLORIDE 0.9% 100 ML IV SCH ×2 (02:23→09:03)
[2019-02-25] MEDS: IPRATROPIUM/ALBUTEROL SULFATE 3 ML SOLUTION IH SCH (07:08)
[2019-02-25] MEDS: PHENYTOIN 100 MG/4 ML UDCUP PO SCH (08:22)
[2019-02-25] MEDS: FAMOTIDINE 20MG TAB 20 MG TAB PO SCH (09:38)
[2019-02-25] MEDS: ASPIRIN 325 MG TABLET PO SCH (09:38)
[2019-02-25] MEDS: VALPROIC ACID (AS SODIUM SALT) 500 MG in SODIUM CHLORIDE 0.9% 50 ML IV SCH (09:38)
[2019-02-25] MEDS: ENOXAPARIN SODIUM 40 MG/0.4 ML SYRINGE SQ SCH (09:39)
--- NOTE | 2019-02-25 11:30 | NUR ---
DR GAL MEJIA AT BEDSIDE, PATIENT'S DAUGHTER X4 AT BEDSIDE, DISCUSSED PT'S PROGNOSIS, DECISION MADE PER PT'S FAMILY FOR WITHDRAWAL OF CARE AND TO KEEP COMFORTABLE.
--- NOTE | 2019-02-25 11:52 | NUR ---
EXTUBATED AT THIS TIME PER RT YOAN, TO REMAINS ON COMFORT MEASURES ONLY, ALL MEDS DISCONTINUED, EXCEPT FOR MORPHINE. NGT DISCONTINUED, CATHETER INTACT.
[2019-02-25] MEDS: MORPHINE SULFATE 2 MG/ML 1ML SYG IVP PRN ×7 (12:01→21:05)
[2019-02-25] MEDS ORDERED: LORAZEPAM 2 MG/ML 1 ML VIAL ONE (12:15)
[2019-02-25] MEDS ORDERED: MORPHINE SULFATE 2 MG/ML 1ML SYG IM SCH (12:15)
[2019-02-25] MEDS: LORAZEPAM 2 MG/ML 1 ML VIAL IVP SCH ×8 (12:29→14:55)
[2019-02-25] MEDS ORDERED: MORPHINE SULFATE 2 MG/ML 1ML SYG IVP SCH (12:30)
[2019-02-25] MEDS: MORPHINE SULFATE 2 MG/ML 1ML SYG IVP SCH ×3 (12:42→14:15)
--- NOTE | 2019-02-25 17:16 | NUR ---
RD NOTIFICATION/ FOLLOW UP Diet: NPO. Pt with poor prognosis; it is possible she will soon according to RN. Pt was on Vital AF 1.2 at goal rate. Pt was intubated and is now extubated. LBM: 02/23; diarrhea not resolved. Please notify RD if any changes occur and dietary recommendations are needed. RD will continue to follow up as needed. Thank you. Addendum: 02/25/19 at [address] Amended: Links added.
[2019-02-25] MEDS ORDERED: MORPHINE-NS 50 MG/50 ML 50 ML IV PRN (19:30)
[2019-02-25] MEDS ORDERED: SODIUM CHLORIDE 0.9% 1000ML 1,000 ML IV PRN (19:30)
--- NOTE | 2019-02-25 20:11 | NUR ---
STATUS WITHDRAW OF LIFE SUPPORT EARLIER TODAY. FAMILY AT BEDSIDE. ENCOURAGED TO CALL FOR WANTS OR NEEDS.
[2019-02-25] MEDS ORDERED: LORAZEPAM 2 MG/ML 1 ML VIAL IVP PRN (21:45)
[2019-02-25] MEDS ORDERED: GLYCOPYRROLATE 1 MG/5 ML SYRINGE IV SCH (21:45)
[2019-02-25] MEDS ORDERED: HALOPERIDOL LACTATE 5 MG/ML VIAL IV PRN (21:45)
--- NOTE | 2019-02-26 00:05 | NUR ---
TRANSFER OF CARE Transfer of care and report given by HARMEET Shafer from 2nd floor. Patient coming from ICU, room 216.
--- NOTE | 2019-02-26 00:15 | NUR ---
TRANSFER TO ROOM 310 AFTER REPORT CALLED TO RECEIVING NURSE.
--- NOTE | 2019-02-26 01:03 | NUR ---
CALLED TO PRONOUNCE CHIKAVANESSA COON ON THIS DAY FEBRUARY 26 AT 0103. ABSENCE OF APICAL PULSE NOTED WITH STETHESCOPE, ABSENCE OF RESPIRATIONS NOTED AND NO BILATERAL PAPILLARY LIGHT REFLEXES NOTED. FAMILY AT BEDSIDE AND HIGH SCHOOL FOREIGN LANGUAGE TEACHER GRAIN TRIMMER Zaire GIRALDO NOTIEFIED. LINDSEY CALDERA TO [facility] CERTIFICATE. FAMILY DECLINES AUTOPSY.
--- NOTE | 2019-02-26 01:27 | NUR ---
NOTIFIED ADMITTING MD Paged MD environmental department manager to notify of patient being . KI Zhang returned page. Informed him of patient's diagnose and recent transfer from ICU. Reported that patient is and to please inform MD Maravilla to sign certificate. RN DOCUMENT IMPROVEMENT SPECIALIST states he will inform MD Maravilla in am.
== END 2019-02-26 01:03 | disposition expired | DRG 870 ==
LOC: EDH 09:37 → EDHIP 10:56 → 2CH 11:54 → EDHIP 02-18 12:21 → 2CH 02-18 12:23 → EDHIP 02-18 12:24 → 2CH 02-18 12:30 → 3BH 02-26 00:28
PROVIDERS: ADMIT Internal Medicine; ATTEND Internal Medicine
PROC: 5A1955Z Respiratory Ventilation, Greater than 96 Consecutive Hours (ICD-10-PCS; principal; 2019-02-16)
PROC: 4A10X4Z Monitoring of Central Nervous Electrical Activity, External Approach (ICD-10-PCS; 2019-02-20)
DX: A41.9 Sepsis, unspecified organism (principal); R65.21 Severe sepsis with septic shock; J96.01 Acute respiratory failure with hypoxia; G93.1 Anoxic brain damage, not elsewhere classified; N30.00 Acute cystitis without hematuria; I46.9 Cardiac arrest, cause unspecified; G25.3 Myoclonus; E78.5 Hyperlipidemia, unspecified; F03.90 Unspecified dementia, unspecified severity, without behavioral disturbance, psychotic disturbance, mood disturbance, and anxiety; B96.4 Proteus (mirabilis) (morganii) as the cause of diseases classified elsewhere; I10 Essential (primary) hypertension; E11.9 Type 2 diabetes mellitus without complications; Z66 Do not resuscitate; Z51.5 Encounter for palliative care; R56.9 Unspecified convulsions; J44.9 Chronic obstructive pulmonary disease, unspecified
CPT/HCPCS: 36415; 36600; 70450; 71045; 76770; 80048; 80053; 80164; 80177; 80185; 81001; 82140; 82435; 82550; 82803; 82947; 82948; 83605; 83735; 83874; 83880; 84100; 84132; 84145; 84295; 84484; 85018; 85025; 85027; 85610; 85730; 87040; 87077; 87088; 87186; 87493; 93005; 94002; 94003; 94640; 94664; 95816; 99291; G0378; J0696; J1650; J1953; J2060; J2185; J2543; J2704; J3370; J3475; J3480; J3490; J7030; J7120; Q2009